=== PATIENT | female | born 1955 | race Caucasian/White ===

== ENCOUNTER → 2020-03-05 10:06 | Outpatient (CLI) | payer BC, SELFPAY ==
--- NOTE | ~2020-03-05 | MM_ITS ---
EXAMINATION: MM screening lamar BI w jael HISTORY: Screening TECHNIQUE: Craniocaudal and mediolateral oblique 3-D tomosynthesis images were obtained and synthetic 2-D images were generated. CAD analysis was submitted and interpreted. COMPARISON: 11/07/2018 BREAST PARENCHYMAL COMPOSITION: There are scattered areas of fibroglandular density. FINDINGS: There is no evidence of suspicious mass, calcification, or architectural distortion to sugg est malignancy in either breast. There has been no suspicious interval change. IMPRESSION: 1. No mammographic evidence of malignancy. 2. Recommend routine screening mammography in one year. BI-RADS Category 1: Negative Reviewed, dictated and finalized at location A. [employer] TRA[employer]
== END ==
PROVIDERS: Visit Provider Nurse Practitioner
DX: Z12.31 Encounter for screening mammogram for malignant neoplasm of breast (principal)
CPT/HCPCS: 77063; 77067

== ENCOUNTER 2021-04-16 10:07 | Outpatient (CLI) | payer MEDICARE, SELFPAY ==
--- NOTE | ~2021-04-16 | MM_ITS ---
EXAMINATION: MM screening lamar BI w jael HISTORY: Screening TECHNIQUE: Craniocaudal and mediolateral oblique 3-D tomosynthesis images were obtained and synthetic 2-D images were generated. CAD analysis was submitted and interpreted. COMPARISON: Comparison to multiple prior studies sequentially, with oldest reviewed study dated 11/07. BREAST PARENCHYMAL COMPOSITION: The breasts are almost entirely fatty. FINDINGS: There is no evidence of suspicious mass, calcification, or architectural distortion to sugg est malignancy in either breast. There has been no suspicious interval change. IMPRESSION: 1. No mammographic evidence of malignancy. 2. Recommend routine screening mammography in one year. BI-RADS Category 1: Negative Reviewed, dictated and finalized at location A. [employer]
== END 2021-04-16 10:08 | disposition home or self-care (01) ==
PROVIDERS: Visit Provider Nurse Practitioner
DX: Z12.31 Encounter for screening mammogram for malignant neoplasm of breast (principal)
CPT/HCPCS: 77063; 77067

== ENCOUNTER → 2021-04-29 12:56 | Outpatient (CLI) | payer MEDICARE, SELFPAY ==
--- NOTE | ~2021-04-29 | DEXA_ITS ---
Bone Density Report Name: CASPER MILLAN Age: 65 Sex: Female Ethnicity: White Date of : 1955 Indication: postmenopausal; screening for osteoporosis; parental hip fracture; prior fracture; asthma or emphysema; end stage renal disease; Referring Provider: COLE, ANN MARIE Study: Bone densitometry was performed. Exam Date: April 29, 2021 Accession number: [id number] Bone Density: Region BMD T-score Z-score Classification AP Spine (L3, L4) 1.163 0.6 2.5 Normal Femoral Neck (Left) 0.979 1.2 2.7 Normal Total Hip (Left) 1.130 1.5 2.8 Normal Femoral Neck (Right) 0.957 1.0 2.5 Normal Total Hip (Right) 1.068 1.0 2.3 Normal Total Hip Mean 1.099 1.3 2.6 Normal World Health Organization criteria for BMD impression classify patients as: Normal (T-score at or above -1.0), Osteopenia (T-score between -1.0 and -2.5), or Osteoporosis (T-score at or below -2.5). 10-year Fracture Risk: FRAX not reported because: All T-scores for Spine Total, Hip Total, Femoral Neck at or above -1.0 Prior hip or vertebral fracture Previous Exams: Region Exam Age BMD T-score BMD Change BMD Change Date g/cm2 vs Baseline vs Previous AP Spine(L3, L4) 04/29/2021 65 1.163 0.6 0.125* 0.125* 11/07/2018 63 1.039 -0.6 Total Hip(Left) 04/29/2021 65 1.130 1.5 -0.053* -0.053* 11/07/2018 63 1.183 2.0 Total Hip(Right) 04/29/2021 65 1.068 1.0 0.006 0.006 11/07/2018 63 1.063 1.0 *Denotes significance at 95% confidence level, LSC for AP Spine = 0.022 g/cm2, LSC for Total Hip = 0.027 g/cm2 Clinical Information Provided by Patient: Have had a previous hip or vertebral fracture Has had a low trauma fracture Parent has had a hip fracture Has used the following medications: Vitamin D, MTV Has the following medical conditions: Asthma or Emphysema, End stage renal disease Patient maximum height was 63.5 Menopause Age: 52 Does not regularly consume dairy products Drinks caffeinated beverages Onset of menses at age 9 Number of children 2 Missed period for more than 6 months in a row Impression: The patient has normal bone mass. The patient has risk factors, including: parental hip fracture, previous fracture. The BMD for the Total Hip(Left) decreased, changing by -0.053 since the last DXA exam. Discussion: INCREASED RISK OF FRACTURE DUE TO HISTORY OF FRACTURE. The patient's previous fracture puts the pa
--- NOTE | ~2021-04-29 | US_ITS ---
EXAMINATION: US transvaginal EXAM DATE: 04/29/2021 13:25 INDICATION: Abnormal findings on diagnostic imaging of other abdominal. TECHNIQUE: Pelvic transvaginal sonogram was performed. There are multiple grayscale and Doppler imag es available for interpretation. Comparison is made to prior examination from 11/07/2018. FINDINGS: Uterus measures 9.7 x 6.0 x 6.4 cm, with multiple fibroids up to about 3.7 cm. This is obs curing the endometrial stripe. Previous measurement of endometrium was about 1 cm and reportedly chele ent had biopsy following that procedure. Technologist reports endometrial measurement of 1.8 cm but i t is obscured by the fibroids and difficult to confidently evaluate. There is no free pelvic fluid. Right adnexa: The ovary is not identified. There is no adnexal mass. Left adnexa: The ovary is not identified. There is no adnexal mass. IMPRESSION: Scattered small thyroid obscuring the endometrium which is not confidently evaluated. If there is clinical concern for endometrial cancer consider MRI. Reviewed, dictated and finalized at location G. IMPRESSION: Scattered small thyroid obscuring the endometrium which is not conf idently evaluated. If there is clinical concern for endometrial cancer consider MRI.
== END ==
PROVIDERS: Visit Provider Nurse Practitioner
DX: Z78.0 Asymptomatic menopausal state (principal); R93.5 Abnormal findings on diagnostic imaging of other abdominal regions, including retroperitoneum
CPT/HCPCS: 76830; 77080

== ENCOUNTER 2021-06-09 09:14 | Outpatient (CLI) | payer MEDICARE, SELFPAY ==
[2021-06-09 10:02] LABS: Anion Gap 3 mmol/L (8-16); Blood Urea Nitrogen 19 mg/dL (7-17); Calcium 9.8 mg/dL (8.4-10.2); Carbon Dioxide 32 mmol/L (22-30); Chloride 100 mmol/L (98-107); Estimated Glomerular Filt Rate > 60; Glucose 308 mg/dL (65-110); Potassium 4.3 mmol/L (3.4-5.0); Sodium 135 mmol/L (137-145)
== END 2021-06-09 09:15 | disposition home or self-care (01) ==
LOC: ANHSURGERY 09:20
PROVIDERS: Anesthesiology; PCP Family Medicine; Visit Provider Obstetrics & Gynecology Gynecology
DX: Z79.899 Other long term (current) drug therapy (principal); Z01.818 Encounter for other preprocedural examination
CPT/HCPCS: 36415; 80048

== ENCOUNTER 2021-06-13 01:44 | Day surgery (SDC) | payer MEDICARE, SELFPAY ==
[2021-06-04 10:31] VITALS: BMI 42.5
--- NOTE | 2021-06-04 10:39 | PC.NURSE ---
Report to the Outpatient Waiting Room, entrance under the green pavilion located off [facility], at time _1000_ on date _06/04/21_. OR Time: _1200_. - You and your visitor will be asked a series of questions to screen for COVID 19 for your protection. - A mask is required within the hospital. One visitor will be allowed to accompany the patient into the hospital. Patients visitor will be instructed to remain with patient at all times or leave the Preoperative COVID Testing Requirements: NONE Patients may have clear liquids (water, carbonated beverages, clear teas, apple juice) until 3 hours prior to surgery with a maximum of 20 ounces. - No food from midnight until time of surgery - Infants may have breast milk until 4 hours before surgery, formula 6 hours prior to surgery. - Children will be allowed to drink immediately following surgery. If applicable, please bring a bottle or sippy cup to assist with drinking. Juice, water, soda, and popsicles are readily available. For infants on formula, please bring formula the day of surgery. Pacifiers are allowed. Take the following medications with a SIP of water the morning of surgery: __METOPROLOL, INHALER__ Medications to discontinue _MELOXICAM PER DR. OCHOA'S INSTRUCTIONS, ALL VITAMINS/SUPPLEMENTS 3 DAYS PRIOR TO SURGERY PER ANESTHESIA, Date to take last dose 06/09/21_ Please no make-up, nail colombian, hairspray, perfume, deodorant, or body powder the day of surgery. No jewelry (including any body piercings) or valuables the day of surgery, leave them at home. Please take a shower or bath the night before, or the morning of, surgery with an antibacterial soap. Wear comfortable, loose fitting clothing. Children are encouraged to wear pajamas. - Jewelry must be removed prior to entering the operating room. Rings and piercings that are not removed may be cut off. - The hospital will not accept responsibility for valuables. - Please leave all valuables, including medications, at home the day of surgery. If you are going home after surgery, a licensed commercial front load driver must drive you home. - NO public transportation without another adult. - We recommend that an adult stay with you for 24 hours following discharge. - We also recommend that you do not drive, make important decision, drink alcoholic beverages, or take any drugs that were not prescribed by your health care provider for at least 24 hours after your discharge time. Follow any additional instructions given to you from your surgeon. Telephone instructions given to PT and asked if any additional questions and then verbalized understanding. Patient advised to call surgeon office or pre surgery nurse liaison [phone] if any additional questions.
--- NOTE | 2021-06-12 16:50 | P.PNAN_ITS ---
Anes - Initial Pre Proc Eval Procedure: Operation Date: 06/13/21 12:00 Proposed Procedures p Hysteroscopy Dilation and Curettage - Rosy Del Rosario MD Date/Time: 06/12/21 16:50 Surgeon: Rosy Del Rosario MD Pre Op Diagnosis: thickened endometrium Patient Data Age: 66 Gender: F Height: 1.6 m Weight: 109.09 kg Allergies Allergy/AdvReac Type Severity Reaction Status Date / Time lisinopril Allergy Cough Verified 06/13/21 10:37 naproxen [From Aleve] AdvReac Gastrointestinal Verified 06/13/21 10:37 Upset thimerosal AdvReac Itching Verified 06/13/21 10:37 Home Medications Medication Instructions Recorded Confirmed Type Fish Oil 1 tab-cap QA 06/04/21 06/13/21 History bimatoprost [Lumigan] 1 drp EACH EYE QPM 06/04/21 06/13/21 History cholecalciferol (vitamin D3) 125 mcg PO QAM 06/04/21 06/13/21 History fenofibrate nanocrystallized 145 mg PO HS 06/04/21 06/13/21 History mzlhhwdidte-soivqjiwr-smpequon 1 inh INHALATION QA 06/04/21 06/13/21 History [Trelegy Ellipta] losartan-hydrochlorothiazide 1 tablet QAM 06/04/21 06/13/21 History lovastatin 20 mg HS 06/04/21 06/13/21 History magnesium 250 mg PO QAM 06/04/21 06/13/21 History melatonin 10 mg PO HS PRN 06/04/21 06/13/21 History meloxicam 15 mg QAM 06/04/21 06/13/21 History metformin 500 mg BID 06/04/21 06/13/21 History metoprolol tartrate 50 mg BID 06/04/21 06/13/21 History ok-nm-GW-[place] 3,6,9 #3 [Women's 1 cap PO HS 06/04/21 06/13/21 History 50+ Advanced] Patient hx anesthesia problems: none Family hx anesthesia problems: none Results Review: All pre-operative results and documents have been reviewed as part of the pre-operative evaluation. [facility] Past Medical History Medical History (Updated 06/12/21 @ 16:52 by Gumaro Santiago MD) COPD (chronic obstructive pulmonary disease) Diabetes Glaucoma HTN (hypertension) Hyperlipidemia Morbid obesity with BMI of 40.0-44.9, adult ROSA (obstructive sleep apnea) Social History Social History Smoking packs per day: 1 Smoking cigarettes per day: 20.0 Years smoked: 22 Smoking pack-years: 22.00 Smoking status: Former smoker Tobacco type: cigarettes Second hand tobacco smoke exposure: No Additional smoking assessment comments: QUIT 1993 Alcohol intake: never Substance use: never Substance use type: does not use Living arrangements: alone Spiritual care concerns: No Anes - Eval Final PreProcedure Day of Procedure 06/12/21 16:50 Patient weight: morbidly obese Heart: regular rate and rhythm Lungs: clear to auscultation and normal air movement Airway: Mallampati scale class II Neurological: alert and oriented Last oral intake: >/= 8 hours ASA classification: III Emergent: no Anesthetic plan: proceed Anesthesia type and monitoring: general GIVS and LMA Results Review: All pre-operative results and documents have been reviewed as part of the pre-operative evaluation. Informed Consent: The patient's anesthetic plan and its attendant risks and benefits were discussed with the patient/family/POA. Questions were solicited and answers provided to the satisfaction of the patient/family/POA.
[2021-06-13 10:39] VITALS: BP 126/51; PULSE 66; RESP 18; TEMP 36.5; O2SAT 98
[2021-06-13] MEDS: ACETAMINOPHEN 500 MG TABLET 1000 MG PO (10:48)
[2021-06-13] MEDS: LACTATED RINGERS 1,000 ML 30 ML IV CONT (10:56)
[2021-06-13 11:02] LABS: Glucose Point of Care 185 mg/dl (65-105)
--- NOTE | 2021-06-13 12:20 | WPDHPUPDATE1 ---
History and Physical Update Update Date/Time: 06/13/21 12:20 History and Physical has been reviewed, including an updated exam of the patient. There are NO changes in the patient's condition. Risks, benefits, and alternatives have been discussed and questions answered. Patient agrees to proceed with procedure.
--- NOTE | 2021-06-13 12:20 | PM.HPGS ---
History of Present Illness History of Present Illness Consent: Risks, benefits, and alternatives have been discussed and questions answered. Patient agrees to proceed with procedure. Chief complaint: thickened endometrium Narrative: Meliza Madsen is a 66 year old female with incidental finding of thickened endometrium up to 1.8 cm but obscurred by fibroids. Denies bleeding. Possilbe pathology reviewed. Rec. to proceed with D&C hysteroscopy. Risks of infection, bleeding, and perforation reviewed. Agrees to proceed. Review of Systems Review of Systems: not repeated day of surgery; patient states no changes in status [facility] Past Medical History Medical History (Updated 06/13/21 @ 12:23 by Rosy Del Rosario MD) COPD (chronic obstructive pulmonary disease) Diabetes Glaucoma HTN (hypertension) Hyperlipidemia Morbid obesity with BMI of 40.0-44.9, adult (normal spontaneous vaginal delivery) x2 ROSA (obstructive sleep apnea) Surgical History Surgical History (Updated 06/13/21 @ 12:23 by Rosy Del Rosario MD) History of hysteroscopy History of tonsillectomy Social History Social History Smoking packs per day: 1 Smoking cigarettes per day: 20.0 Years smoked: 22 Smoking pack-years: 22.00 Smoking status: Former smoker Tobacco type: cigarettes Second hand tobacco smoke exposure: No Additional smoking assessment comments: QUIT 1993 Alcohol intake: never Substance use: never Substance use type: does not use Living arrangements: alone Spiritual care concerns: No Meds Home Medications and Allergies Home Medications Medication Instructions Recorded Confirmed Type Fish Oil 1 tab-cap QAM 06/04/21 06/13/21 History bimatoprost [Lumigan] 1 drp EACH EYE QPM 06/04/21 06/13/21 History cholecalciferol (vitamin D3) 125 mcg PO QAM 06/04/21 06/13/21 History fenofibrate nanocrystallized 145 mg PO HS 06/04/21 06/13/21 History omgjifjlhsb-vzrlxaaua-pbtvwhrp 1 inh INHALATION QAM 06/04/21 06/13/21 History [Trelegy Ellipta] losartan-hydrochlorothiazide 1 tablet QAM 06/04/21 06/13/21 History lovastatin 20 mg HS 06/04/21 06/13/21 History magnesium 250 mg PO QAM 06/04/21 06/13/21 History melatonin 10 mg PO HS PRN 06/04/21 06/13/21 History meloxicam 15 mg QAM 06/04/21 06/13/21 History metformin 500 mg BID 06/04/21 06/13/21 History metoprolol tartrate 50 mg BID 06/04/21 06/13/21 History kw-hu-QK-[place] 3,6,9 #3 [Women's 1 cap PO HS 06/04/21 06/13/21 History 50+ Advanced] Allergies Allergy/AdvReac Type Severity Reaction Status Date / Time lisinopril Allergy Cough Verified 06/13/21 10:37 naproxen [From Aleve] AdvReac Gastrointestinal Verified 06/13/21 10:37 Upset thimerosal AdvReac Itching Verified 06/13/21 10:37 Vital Signs Vital Signs - 24 hr 06/13/21 10:39 Temperature 97.7 F Pulse Rate 66 Respiratory Rate 18 Blood Pressure 126/51 L Pulse Oximetry 98 Exam Const: General: alert Orientation/consciousness: patient oriented x3 Resp: Effort & Inspection: normal respiratory effort Auscultation: clear to auscultation bilaterally Cardio: Rate: regular rate Rhythm: regular rhythm GI: GI Palp: Yes Soft to palpation, No Tenderness to palpation present (GI) and No Palpable mass present : External Female Exam: normal external appearance Speculum Exam - Vagina: normal appearance of the vagina and normal vaginal discharge Speculum Exam - Cervix: normal appearance of the cervix Bimanual exam- vagina & uterus: uterine size normal and consistency normal Bimanual Exam- Adnexa, other: normal adnexae and No adnexal tenderness Neuro: General: patient oriented x3 Assessment and Plan Assessment and plan (1) Thickened endometrium: Code(s): R93.89 - Abnormal findings on diagnostic imaging of other specified body structures Status: Acute Assessment and Plan: plan to proceed with D&C hysteroscopy
--- NOTE | 2021-06-13 12:50 | P.OP_ITS ---
Procedure Note - Detailed Date of Procedure 06/13/21 Pre-op Diagnosis thickened endometrium Post-op Diagnosis Same Procedure Performed D&C hysteroscopy Surgeon Rosy Del Rosario MD Anesthesia MAC and Local Findings Uterus 8 cm; grossly atrophic with anterior fibroid Description of Procedure The patient was taken to the operating room and placed under anesthesia in the dorsal lithotomy position. She was prepped and draped in the usual sterile fashion. [place] speculum was placed in the vagina and the cervix was grasped on the anterior lip with a tenaculum. The cervix is injected in each quadrant with 1% lidocaine. The uterus is sounded to 8cm. The cervix is serially dilated with [place]gar to an 8. The diagnostic hysteroscope was placed with no abnormalities noted. The hysteroscope was then removed. The medium sharp curette is used to curette the endometrium until a good uterine cry was noted in areas. Minimal material was obtained consistent with the visual appearance. All instruments are removed. Sponge, needle, and instrument counts are correct per the OR staff. Estimated Blood Loss 5 Drains No Packing No Pathology Yes ( Endometrial curettings) Complications No immediate complications Condition Stable Disposition PACU
[2021-06-13 12:55] VITALS: BP 149/61; PULSE 80; RESP 14; O2SAT 97
[2021-06-13 13:25] VITALS: BP 132/64; PULSE 77; RESP 14
[2021-06-13] MEDS: oxyCODONE HCL (*CRX) 5 MG TAB IR PO (13:43)
[2021-06-13 13:45] VITALS: BP 138/67; PULSE 77; RESP 14
== END 2021-06-13 13:55 | disposition home or self-care (01) ==
PROVIDERS: PCP Family Medicine; Visit Provider Obstetrics & Gynecology Gynecology
PROC: 0U5B8ZZ Destruction of Endometrium, Via Natural or Artificial Opening Endoscopic (ICD-10-PCS; CPT 58563; principal; 2021-06-13 12:00)
DX: D25.9 Leiomyoma of uterus, unspecified (principal); N85.8 Other specified noninflammatory disorders of uterus; J44.9 Chronic obstructive pulmonary disease, unspecified; E11.9 Type 2 diabetes mellitus without complications; I10 Essential (primary) hypertension; G47.33 Obstructive sleep apnea (adult) (pediatric); E78.5 Hyperlipidemia, unspecified; Z87.891 Personal history of nicotine dependence; E66.01 Morbid (severe) obesity due to excess calories; Z68.41 Body mass index [BMI] 40.0-44.9, adult
CPT/HCPCS: 58558; 36415; 80048; 82948; 88305; A9270; J2704; J3010; J7030; J7120

== ENCOUNTER 2021-08-24 18:29 | Emergency (ER) | payer MEDICARE, SELFPAY ==
[2021-08-24 18:36] VITALS: BP 180/70; PULSE 72; RESP 20; TEMP 36.4; O2SAT 100
--- NOTE | 2021-08-24 18:36 | ED.FEMALEGU ---
HPI - Female Genitourinary General Chief complaint: Urogenital-Female Stated complaint: Urinary Problem Time Seen by Provider: 08/24/21 18:36 Source: patient and RN notes reviewed History of Present Illness HPI Narrative: Patient is a 66-year-old female who presents the urgent care with complaints of a possible UTI. Patient does have a history of a ovarian cyst and is also had some left lower suprapubic pressure. Patient states that the pain started yesterday and was more persistent today. Patient has taken Tylenol. Also reports of some chills which is normal when she has UTIs . Patient denies any urinary frequency, urgency, hematuria. Denies a fever, nausea, vomiting. No other acute complaints. No acute distress noted. Patient aware of the plan of care. Some parts of this dictation were generated by voice recognition software and may contain typographical and/or grammatical inaccuracies. Related Data Home Medications Medication Instructions Recorded Confirmed Fish Oil 1 tab-cap QAM 06/04/21 08/24/21 bimatoprost 0.01 % eye drops 1 drp EACH EYE QPM 06/04/21 08/24/21 (Bita) cholecalciferol (vitamin D3) 125 125 mcg PO QAM 06/04/21 08/24/21 mcg (5,000 unit) tablet fenofibrate nanocrystallized 145 145 mg PO HS 06/04/21 08/24/21 mg tablet losartan 100 1 tablet QAM 06/04/21 08/24/21 mg-hydrochlorothiazide 12.5 mg tablet lovastatin 20 mg tablet 20 mg HS 06/04/21 08/24/21 magnesium 250 mg tablet 250 mg PO QAM 06/04/21 08/24/21 melatonin 10 mg tablet 10 mg PO HS PRN Sleep 06/04/21 08/24/21 meloxicam 15 mg tablet 15 mg QAM 06/04/21 08/24/21 metformin 500 mg tablet 1,000 mg BID 06/04/21 08/24/21 metoprolol tartrate 50 mg tablet 50 mg BID 06/04/21 08/24/21 [id number]-kyapqmxk-OD-omega 1 cap PO HS 06/04/21 08/24/21 3,6,9 #3 400 mcg capsule Allergies Allergy/AdvReac Type Severity Reaction Status Date / Time lisinopril Allergy Cough Verified 08/24/21 18:43 naproxen [From Aleve] AdvReac Gastrointestinal Verified 08/24/21 18:43 Upset thimerosal AdvReac Itching Verified 08/24/21 18:43 Review of Systems Review of Systems: CONSTITUTIONAL: Denies fever, chills, or sweats. EYES: Denies visual changes, redness, or discharge. ENT: Denies rhinorrhea, congestion, sore throat, or otalgia. CARDIOVASCULAR: Denies chest pain, palpitations, or edema. RESPIRATORY: Denies cough or dyspnea. GASTROINTESTINAL: Denies abdominal pain, nausea, vomiting, or diarrhea. GENITOURINARY: Reports of left-sided suprapubic pressure SKIN: Denies rash or itching. MUSCULOSKELETAL: Denies back pain, joint pain, or myalgia. NEUROLOGIC: Denies headache, numbness, or weakness. All other systems reviewed are negative, except as documented in HPI. [facility] Past Medical History Medical History (Updated 08/24/21 @ 18:55 by AGUSTÍN Siu) COPD (chronic obstructive pulmonary disease) Diabetes Glaucoma HTN (hypertension) Hyperlipidemia Morbid obesity with BMI of 40.0-44.9, adult (normal spontaneous vaginal delivery) x2 ROSA (obstructive sleep apnea) Surgical History Surgical History (Updated 06/13/21 @ 12:23 by Rosy Del Rosario MD) History of hysteroscopy History of tonsillectomy Social History Social History Smoking packs per day: 1 Smoking cigarettes per day: 20.0 Years smoked: 22 Smoking pack-years: 22.00 Smoking status: Former smoker Tobacco type: cigarettes Second hand tobacco smoke exposure: No Additional smoking assessment comments: QUIT 1993 Alcohol intake: never Substance use: never Substance use type: does not use Spiritual care concerns: No Comments At the time of my signature, I reviewed and agree with the nursing past medical, surgical, social, and family history. There is no relevant family history pertinent to the patient complaint. Exam Narrative: GENERAL: This is a well-nourished, well-developed patient, in no apparent distress. HEAD: normocephalic, atraumat
== END 2021-08-24 18:58 | disposition home or self-care (01) ==
PROVIDERS: Emergency Provider Nurse Practitioner Family; PCP Family Medicine
DX: N39.0 Urinary tract infection, site not specified (principal); Z87.891 Personal history of nicotine dependence; J44.9 Chronic obstructive pulmonary disease, unspecified; E11.9 Type 2 diabetes mellitus without complications; H40.9 Unspecified glaucoma; I10 Essential (primary) hypertension; E78.5 Hyperlipidemia, unspecified; G47.33 Obstructive sleep apnea (adult) (pediatric); E66.01 Morbid (severe) obesity due to excess calories; Z68.41 Body mass index [BMI] 40.0-44.9, adult
CPT/HCPCS: 81003; 87077; 87086; 87186; 99213; G0463

== ENCOUNTER 2022-06-04 09:41 | Outpatient (CLI) | payer MEDICARE, SELFPAY ==
--- NOTE | ~2022-06-04 | MM_ITS ---
EXAMINATION: MM screening lamar BI w jael HISTORY: Screening mammogram TECHNIQUE: Craniocaudal and mediolateral oblique 3-D tomosynthesis images were obtained and synthetic 2-D images were generated. Bilateral rotated lateral CC views. CAD analysis was submitted and interp reted. COMPARISON: 04/16/2021, 03/05/2020 bilateral screening mammogram examinations BREAST PARENCHYMAL COMPOSITION: The breasts are almost entirely fatty. FINDINGS: There is no evidence of suspicious mass, calcification, or architectural distortion to sugg est malignancy in either breast. There has been no suspicious interval change. IMPRESSION: 1. No mammographic evidence of malignancy. 2. Recommend routine screening mammography in one year. BI-RADS Category 1: Negative Reviewed, dictated and finalized at location A.
== END 2022-06-04 09:42 | disposition home or self-care (01) ==
LOC: ANHIMG 09:46
PROVIDERS: PCP Family Medicine; Visit Provider Nurse Practitioner
DX: Z12.31 Encounter for screening mammogram for malignant neoplasm of breast (principal)
CPT/HCPCS: 77063; 77067

== ENCOUNTER 2023-05-28 08:33 | Outpatient (CLI) | payer MEDICARE, SELFPAY ==
--- NOTE | ~2023-05-28 | MM_ITS ---
EXAMINATION: MM screening lamar BI w jael HISTORY: Screening TECHNIQUE: Craniocaudal and mediolateral oblique 3-D tomosynthesis images were obtained and synthetic 2-D images were generated. CAD analysis was submitted and interpreted. COMPARISON: No prior mammogram is available for comparison at this institution. Comparison to multipl e prior studies sequentially, with oldest reviewed study dated 03/05/2020. BREAST PARENCHYMAL COMPOSITION: There are scattered areas of fibroglandular density. FINDINGS: There is no evidence of suspicious mass, calcification, or architectural distortion to sugg est malignancy in either breast. There has been no suspicious interval change. IMPRESSION: 1. No mammographic evidence of malignancy. 2. Recommend routine screening mammography in one year. BI-RADS Category 1: Negative Reviewed, dictated and finalized at location B.
== END 2023-05-28 08:34 | disposition home or self-care (01) ==
LOC: ANHIMG 08:36
PROVIDERS: PCP Family Medicine; Visit Provider Obstetrics & Gynecology Gynecology
DX: Z12.31 Encounter for screening mammogram for malignant neoplasm of breast (principal)
CPT/HCPCS: 77063; 77067

== ENCOUNTER 2024-06-19 07:11 | Outpatient (CLI) | payer MEDICARE, SELFPAY ==
--- NOTE | ~2024-06-19 | MM_ITS ---
EXAMINATION: MM screening lamar BI w jael HISTORY: Screening mammogram TECHNIQUE: Craniocaudal and mediolateral oblique 3-D tomosynthesis images were obtained and synthetic 2-D images were generated. CAD analysis was submitted and interpreted. COMPARISON: 05/28/2023, 06/04/2022, 04/16/2021, 03/05/2020 BREAST PARENCHYMAL COMPOSITION:Not Dense. The breasts are almost entirely fatty FINDINGS: No suspicious mass, calcification, or architectural distortion are identified in either analisa ast to suggest malignancy. There has been no suspicious interval change. IMPRESSION: No mammographic evidence of malignancy. Recommend routine screening mammography in one year. BI-RADS Category 1: Negative Reviewed, dictated and finalized at location .
--- OUTSIDE RECORDS SUMMARY | 2024-06-19 07:19 | XMS_ITS | CONTINUITY OF CARE DOCUMENT ---
Author Name sahra denisefelice Address Unknown Organization [facility] Address [id number] [place] [address] [address] [place] [address] Phone [phone] Care Team Providers Care Logistician Name Role Phone Yogi Alcantar MD Unavailable [phone] MILO DILLON, SUSAN Unavailable [phone] DERICHIE PATenC, SUSAN Unavailable [phone] PROBLEMS Condition Status Date Provider Notes Family History of CVA active Yogi Alcantar MD CHEST PAIN active Yogi Alcantar MD Obesity active Yogi Alcantar MD Degenerative joint disease of right knee active 02/21 Yogi Alcantar MD Diabetes mellitus active Yogi Alcantar MD Hypertension active Yogi Alcantar MD ENCOUNTERS Date Type Provider Location Encounter Diag nosis - In-person encounter Office Visit Yogi Alcantar MD [facility] Family History of CVACHEST PAINObesityDegenerative joint disease of right kneeDiabetes mellitusHypertension VITAL SIGNS Date Observation Value Provider Body Mass Index (Ratio) 45.72 kg/m2 Alejandro Hughes blood pressure, resting Yes Yogi Alcantar MD blood pressure, diastolic 86 mm[Hg] Da cris Graciela blood pressure, systolic 142 mm[Hg] Dac ia Graciela oxygen saturation, oximetry 95 % Cheri Graciela respiratory rate E&M 18 /min Cheri V oss pulse rate 69 /min Cheri Graciela weight E&M 250 [lb_av] Cheri Fremont height E&M 62 [in_i] Cheri Fremont ALLERGIES Allergy Name Onset Date Reaction Criticality Status DARVOCET High Criticality active THIMPROSAL High Criticality active HISTORY OF MEDICATION USE Medication Status Instructions Dates Provider Indications Com ments MULTIPLE VITAMIN ORAL TABLET active take one daily [facility] VITAMIN D3 5000 UNIT ORAL TABLET active take one daily [facility] VITAMIN B-12 5000 MCG ORAL TABLET DISINTEGRATING active take one half tablet daily Cheri Fremont ALLERGY RELIEF TABLET active take one daily [facility] CO-Q 10 OMEGA-3 FISH OIL ORAL CAPSULE active take one daily [facility] ASPIR-81 81 MG ORAL TABLET DELAYED RELEASE active take one daily [facility] METOPROLOL TARTRATE 50 MG ORAL TABLET active take one twice daily [facility] LOSARTAN POTASSIUM-HCTZ 100-12.5 MG ORAL TABLET active take one daily [facility] METFORMIN HCL 500 MG ORAL TABLET active take once daily [facility] SOCIAL HISTORY Date Observation Value Provider social history E&M Smoking Histo ry: Uvaldo whitaker is a former smoker. Yogi Alcantar MD social history reviewed E&M revi ewed - no changes required Yogi Alcantar MD alcohol use no [facility] number of years as a smoker 8 a Cheri Fremont smoking history, total pack/day 2 Cheri Fremont smoking, year quit 1994 Cheri [facility] s cigarette use yes Cheri Fremont smoking status Former smoker Cheri Fremont FAMILY HISTORY Family Member Condition Father Family History of Hy pertension: Mother Family History of Hy pertension: Mother Family History of CV A or Stroke: Mother Family History of Ar thritis: INSURANCE PROVIDERS Payer name Policy type / Coverage type [place] red republic[employer] ID [id number] MEDICAID Medicaid [id number] ADVANCE DIRECTIVES Name Date DISCUSSED - NO DECISION MADE TREATMENT PLAN Date Name Performer Cardiology New Patie nt:Her updated medication list for this problem includes: Aspir-81 81 Mg Oral Tablet Delayed Release (Aspirin) ..... Take one daily Losartan Potassium-hctz 100-12.5 Mg Oral Tablet (Losartan potassium-hctz) ..... Take one daily Metformin Hcl 500 Mg Oral Tablet (Metformin hcl) ..... Take once daily [facility] New Patie nt:BP today: 142/86 Her updated medication list for this problem includes: Metoprolol Tartrate 50 Mg Oral Tablet (Metoprolol tartrate) ..... Take one twice daily Losartan Potassium-hctz 100-12.5 Mg Oral Tablet (Losartan potassium-hctz) ..... Take one daily [facility] New Ar nt:Orders: E KG (CPT-37615) C omplete Echo (CPT-28554) S TR - Adenosine (CPT-61958) C T, Coronary Calcium Score (CPT-90839) Jones [place]berg Date Name CT, Coronary Calcium Score STR - Adenosine Complete Echo HISTORY OF PROCEDURES Procedure Date Procedure Name Provider Procedure Notes S tatus Regadenoson, 4 units Yogi Alcantar MD completed Cardiolite, 2 units Yogi Alcantar MD c ompleted SPECT Images Taye Bhandari MD compl eted Stress EKG Jabier Heredia MD complete d EKG Yogi Alcantar MD completed
--- OUTSIDE RECORDS SUMMARY | 2024-06-19 07:19 | XMS_ITS | Clinical Summary ---
Author Organization [facility] Building [address] Address [address] [place] [address] Care Team Providers Care Plating Foreman Name Role Phone Morro Piedra MD Primary Care Provider [phone] Rosy Del Rosario MD Unavailable [phone] Allergies Active Allergy Reactions Criticality Noted Date Comments Amlodipine Edema,Swelling High 05/09/2015 Ibuprofen Angioedema,Unknown High 01/20/2016 Reaction: facial swelling, Reaction: facial swelling, Lisinopril Cough,Other (See comments) High 11/15/2018 cough Naproxen Other (See comments),Nausea only,Nausea & Vomiting,Vomiting High 11/15/2018 Reaction: Gastrointestinal Intolerance, Reaction: Gastrointestinal Intolerance, Reaction: Gastrointestinal Intolerance, Reaction: Gastrointestinal Intolerance, Nsaids (Non-Steroidal Anti-Inflammatory Drug) Nausea only,Nausea & Vomiting,Hives High 01/20/2016 Other Unknown High 12/22/2017 Propoxyphene-Acetam inophen Unknown High 12/22/2017 Thimerosal Unknown,Hives,Swel ling,Urticaria High 01/20/2016 Facial swelling Tolmetin Nausea Only,Nausea only,Nausea & Vomiting High 01/20/2016 Medications blood-glucose meter (True Metrix Air Glucose Meter) misc True Metrix Air Glucose Meter Active multivitamin with iron tablet Take by mouth Acti ve blood glucose diagnostic strip True Metrix Glucose Test Strip Active lancets 33 gauge misc TRUEplus Lancets 33 gauge Active omega-3 fatty acids-fish oil 360-1,200 mg capsule Take 1,200 mg by mouth 02/11/19 17 Active traZODone (DESYREL) 50 mg tablet trazodone 50 mg tablet 12/03/19 19 Active triamcinolone (KENALOG) 0.025 % cream Apply topically 2 times daily 12/03/19 19 Active albuterol HFA (PROVENTIL HFA,VENTOLIN HFA,PROAIR HFA) 90 mcg/actuation inhaler Ventolin HFA 90 mcg/actuation aerosol inhaler 10/17/19 16 Active cholecalciferol (VITAMIN D-3) 5,000 unit capsule Take 1 capsule (5,000 Units total) by mouth daily 02/11/19 17 Active fenofibrate nanocrystallized (TRICOR) 145 mg tablet Take 1 tablet (145 mg total) by mouth daily 12/16/19 19 Active losartan-hydroCHLORO thiazide (HYZAAR) 100-12.5 mg per tablet losartan 100 mg-hydrochloro thiazide 12.5 mg tablet 01/03/20 16 Active metoprolol (LOPRESSOR) 50 mg tablet metoprolol tartrate 50 mg tablet 10/17/19 16 Active loratadine (CLARITIN) 10 mg tablet ALLERGY RELIEF TABLET 12/23/19 18 Active cyanocobalamin (Vitamin B-12) 1,000 mcg/mL injection Inject under the skin Active FeroSuL 325 mg (65 mg iron) tablet Take 1 tablet (325 mg total) by mouth Takes 3 x wk Active meloxicam (MOBIC) 15 mg tablet Take 1 tablet (15 mg total) by mouth daily 30 tablet 12/30/19 23 Active fluticasone furoate-vilanteroL (Breo Ellipta) 200-25 mcg/dose diskus inhalerIndications:M oderate persistent asthma without complication Inhale 1 puff daily Rinse mouth with water after use. Do not swallow. 60 each 11 06/01/19 24 Active Ozempic 1 mg/dose (4 mg/3 mL) pen injector injection 08/07/19 24 Active latanoprost (XALATAN) 0.005 % ophthalmic solution 1 drop nightly 24 Active lancets (TRUEplus Lancets) 33 gauge misc use to check blood sugar 1-2 times daily Active blood glucose diagnostic (True Metrix Glucose Test Strip) strip USE TO TEST BLOOD SUGAR ONE TO TWO TIMES DAILY DIRECTED Active sertraline (ZOLOFT) 50 mg tablet Take 1 tablet (50 mg total) by mouth daily 11/01/19 24 Active pioglitazone (ACTOS) 15 mg tablet Take 1 tablet (15 mg total) by mouth daily 11/16/19 24 Active atorvastatin (LIPITOR) 40 mg tablet Take 1 tablet (40 mg total) by mouth daily 11/01/19 24 Active metFORMIN XR (GLUCOPHAGE XR) 750 mg 24 hr tablet Take 1 tablet (750 mg total) by mouth daily with breakfast 04/25/19 25 Active fluticasone furoate-vilanteroL (Breo Ellipta) 200-25 mcg/dose diskus inhalerIndications:M oderate persistent asthma without complication Inhale 1 puff daily Rinse mouth with water after use. Do not swallow. 60 each 11 06/01/19 026 Active Hospital, Clinic, or Other Facility Administered Medication Ordered Dose Route Frequency Start Date End Date Status lidocaine (XYLOCAINE) 20 mg/mL (2 %) injection 3 mLIndications:Admini stration of Local Anesthesia 3 mL One-Time Injection 05/30/2024 5 Ended methylPREDNISolone acetate (DEPO-medrol) injection 80 mgIndications:Primar y osteoarthritis of right knee 80 mg intra-artic One-Time Injection 05/30/2024 5 Ended Active Problems Problem Noted Date Diagnosed Date Trigger middle finger of left hand 08/04/2023 Trigger middle finger of right hand 08/04/2023 Moderate persistent asthma without complication 06/01/2023 Assessment & Plan (06/01/2024 11:03 AM CDT): Continue Breo Ellipta 200 daily at the same time She is aware to rinse and spit after use Continue albuterol 2 puffs every 4-6 hours as needed only, she is aware of indications for use 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 however she is well-controlled on ICS/LABA therapy at this time Her absolute eosinophils on 04/24/2024 were 398 We have discussed signs and symptoms that would require earlier evaluation or change to plan of care Assessment & Plan (12/01/2023 10:39 AM CDT): Continue Breo Ellipta 200 daily at the same time She was aware to rinse and spit after use Continue albuterol as needed only, she is aware of indications for use Previous peripheral eosinophilia however she is well-controlled on ICS/LABA therapy at this time We have discussed signs and symptoms that would require earlier evaluation or change to plan of care Discussed vaccinations Assessment & Plan (06/01/2023 9:48 AM CDT): Symbicort is not covered by her insurance, start Breo Ellipta 200 1 puff daily She is aware to discontinue Trelegy and rinse and spit after use Continue albuterol as needed only, discussed indications for use Cigarette nicotine dependence in remission 05/31 Assessment & Plan (06/01/2024 11:01 AM CDT): She quit in 1993 She is not a candidate for annual low-dose cancer screening Assessment & Plan (12/01/2023 10:40 AM CDT): She quit in 1993 She is not a candidate for low-dose cancer screening Assessment & Plan (06/01/2023 9:47 AM CDT): She is not a candidate for low-dose cancer screening Obstructive sleep apnea 06/01/2023 Assessment & Plan (06/01/2024 11:05 AM CDT): Continue PAP use with all sleep She is aware of the risks of uncorrected sleep apnea The last download I see was from 2022: Report date: 06/09/22 to 09/06/22 % total days used 100% % days used > 4 hours 100% Average hours/day 8:31 AHI: 1.2 90/95% pressure 12.3 Continue to follow with sleep medicine Assessment & Plan (12/01/2023 10:39 AM CDT): Continue PAP use with all sleep She is aware of the risks of uncorrected sleep apnea Continue to follow with sleep medicine Assessment & Plan (06/01/2023 9:48 AM CDT): Continue PAP use with all sleep We have discussed the risks of uncorrected sleep apnea Continue to follow with sleep medicine Morbid (severe) obesity due to excess calories 1 Body mass index 40.0-44.9, adult (CMS/HCC) 12/03 COVID 12/24/2020 Primary osteoarthritis of right knee 03/22/2019 Abnormal glucose 12/24/2016 Benign paroxysmal positional vertigo of right ea r 12/24/2016 Right wrist tendinitis 10/26/2016 Vitamin D deficiency 12/13/2012 Overview (05/13/2016): Hypovitaminosis D Benign hypertension 10/30/2010 Overview (05/15/2016): Benign Hypertension Adiposity 10/30/2010 Overview (05/15/2016): Obesity High cholesterol Encounters Date Type Department Care Team Description 05/31/2024 9:00 AM CDT Office Visit [facility] Pulmonary at [address] [place] [id number] Chelo Gomez NP Moderate persistent asthma without complication (Primary Dx); Obstructive sleep apnea; Cigarette nicotine dependence in remission 05/30/2024 9:00 AM CDT Office Visit [facility] Orthopedics and Sports Medicine [address] [place] [address] [address] [place] [phone] Mandie Dumont PA Primary osteoarthritis of right knee (Primary Dx) from Last 3 Months Immunizations Immunization Administration Dates Next Due Tdap 11/06/2011 Surgical History Surgery Date Site/Laterality Comments OTHER SURGICAL HISTORY tonselectomy OTHER SURGICAL HISTORY miscarrage/ DNC OTHER SURGICAL HISTORY 1995 ovarian cyst ruptured ORAL SURGERY Medical History Medical History Date Comments Hx Other Medical panic attacks Arthritis Arthritis Asthma Asthma Obstructive sleep apnea 06/01/2023 Diabetes mellitus (HCC) Kidney stone High cholesterol Family History Medical History Relation Name Comments Heart disease Brother 3 Heart disease; Cause of : Heart disease COPD Brother 4 COPD; Alzheimer's disease Father Alzheime r's Disease; Cause of : Alzheimer's Disease Colon cancer Mother Cancer, colon; Arthritis Other 1 Hypertension Other 1 Stroke Other 1 Other Other 2 Sepsis; Cause o f : Sepsis Relation Name Status Comments Brother 1 (Age 55) Brother 2 Alive Brother 3 Brother 4 Father (Age 64) Mother Alive Other 1 Other 2 Social History Tobacco Use Types Packs/Day Years Used Date Smoking Tobacco: Former Smokeless Tobacco: Never Tobacco Cessation:Counseling Given: Not Answered Alcohol Use Standard Drinks/Week Comments No 0 (1 standard drink = 0.6 oz pur e alcohol) Comments Unknown Sex and Gender Information Value Date Recorded Sex Assigned at Not on file 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 Gender Identity Female 10/22/2020 10:16 AM CDT Sexual Orientation Straight 10/22/2020 10 :16 AM CDT Obstetrics History Last Filed Vital Signs Vital Sign Reading Time Taken Comments Blood Pressure 140/71 05/31/2024 8:59 AM CDT Pulse 77 05/31/2024 8:59 AM CDT Temperature 36.6 C (97.8 F) 05/31/2024 8:59 AM CDT Respiratory Rate 18 05/31/2024 8:59 AM CDT Oxygen Saturation 98% 05/31/2024 8:59 AM CDT Inhaled Oxygen Concentration - - Weight 113.7 kg (250 lb 9.6 oz) 05/31/2024 8:59 AM CDT Height 157.5 cm (5' 2 ) 05/31/2024 8:59 AM CDT Body Mass Index 45.84 05/31/2024 8:59 AM CDT Plan of Treatment Health Maintenance Due Date Last Done Comments Hepatitis B Screening 06/05/1973 Osteoporosis Screening-Bone Density Scan 08/20/2010 08/20/2008 Breast Cancer Screening-Mammogram 05/21/2017 017, 05/01/2015 Depression Screening 12/24/2017 12/24/2016 Colon Cancer Screening-Colonoscopy 02/08/20192009 Pneumococcal vaccine 65+ (2 of 2 - PCV) 07/08/2019 0 07/07/2018 Well Visit 65+ 06/05/2020 12/24/2016 DTaP/Tdap/Td Vaccine (3 - Td or Tdap) 11/05/2021, 02/08/2009 Fall Risk Assessment 12/25/2021 12/25/2020 Influenza Vaccine (Season Ended) 2024 Colon Cancer Screening-CT Colonography Discontinued Colon Cancer Screening-DNA Stool Discontinued 02/08/19 10 Colon Cancer Screening-FIT Discontinued 02/08/2009 Colon Cancer Screening-Sigmoidoscopy Discontinued 02/2009 Hepatitis C Screening Completed 12/10/2016, 017 Zoster Vaccine Completed 11/24/2021, 07/18/2021 Procedures Procedure Name Priority Date/Time Associated Diagnosis Comments ME ARTHROCENTESIS ASPIR&/INJ MAJOR JT/BURSA W/O US Routine 05/30/2024 9:00 AM CDT Primary osteoarthritis of right knee HEPATITIS C AB REFLEX RNA QUANT PCR Routine 12/10/2016 8:45 AM CDT MAMMOGRAPHY Routine 05/21/2016 COLONOSCOPY Routine 02/08/2009 DEXA SCAN Routine 08/20/2008 from Last 3 Months or Most Recently Relevant to Health Maintenance Results * ME ARTHROCENTESIS ASPIR&/INJ MAJOR JT/BURSA W/O US (05/30/2024 9:00 AM CDT) Narrative Guido Mack MD - 05/30/2024 9:00 AM CDT Guido Mack MD 05/30/2024 12:51 PM Large Joint (Hip, Knee, Shoulder) Injection: R knee Performed by: Mandie Dumont PA Authorized by: Mandie Dumont PA Large Joint Injection/Aspiration: Consent Given by: Patient Site marked: the procedure site was marked Timeout: prior to procedure the correct patient, procedure, and site was verified Verbal consent obtained: Yes Supporting Documentation: Indications: Pain Procedure Details: Location: Knee Site: R knee Needle Size: 22 G Approach: Anterolateral Ultrasound guided: No Fluroscopic guidance: No Medications: 80 mg methylPREDNISolone acetate 80 mg/mL; 3 mL lidocaine 20 mg/mL (2 %) Patient tolerance: Patient tolerated the procedure well with no immediate complications us Mandie WILLETT IN CLINIC/BEDSIDE ORD ERABLES Final Result * Hepatitis C Antibody Reflex Hepatitis C RNA Quantitative PCR (12/10/2016 8:45 AM CDT) Hep C Ab Negative Negative ERIC MENDOZA Blood specimen (specimen) 12/10/2016 8:45 AM CDT 12/10/2016 2:36 PM CDT Guido Isabel MD LAB MICROBIOLOGY - GENE RAL ORDERABLES Final Result ERIC MENDOZA [id number] Department [place] [address] * MAMMOGRAPHY (05/21/2016) [facility] Mammogram Normal Historical Provider HEALTH MAINTENANCE Final Result * COLONOSCOPY (02/08/2009) [facility] Colonoscopy Unknown Comment:Per Next Gen Caregui delines Historical Provider HEALTH MAINTENANCE Final Result * DEXA SCAN (08/20/2008) [facility] DEXA Scan Normal Historical Provider HEALTH MAINTENANCE Final Result from Last 3 Months or Most Recently Relevant to Health Maintenance Insurance [facility] MEDICARE ADVANTAGE [facility] MED[facility] Address: [facility] [address] [place] [address] [facility] MDCR HMO REF [facility] MEDIC[facility] Address: [address] [address] [place] [address] [place] [address] [facility] MEDICARE ADVANTAGE [facility] MEDIC[facility] Address: [phone] [place] [address] Care Teams Plating Foreman Relationship Specialty Start Date End Date Morro Piedra MD PCP - General Family Medicine 12/08/18 Rosy Del Rosario MD [address] [address] Referring Physician Gynecology 12/08/18
--- OUTSIDE RECORDS SUMMARY | 2024-06-19 07:19 | XMS_ITS | Clinical Summary ---
Author Organization [facility] Address [address] [place] [address] Care Team Providers Care Supreme [address] Justice Name Role Phone Morro Piedra MD Primary Care Provider [phone] Source Comments [facility],non-owned Affiliates and Associated Physician Practices is amultiple site organization consisting of ambulatory clinics and hospital sitesin [place], [place], [place] and [place]. This disclosure is being madepursuant to the Care Everywhere program and may not contain all information available regarding this patient. Last updated 17.[employer] [facility] Allergies Active Allergy Reactions Criticality Noted Date Comments Amlodipine Base Swelling Low 05/09/2015 Lisinopril Cough Naproxen Nausea and/or Vomiting Reaction: Gastrointestinal Intolerance, Nsaids Nausea and/or Vomiting 01/20/2016 Thimerosal Urticaria Medium Tolmetin Nausea and/or Vomiting 01/20/2016 Medications * Be aware that medications may not be up to date on this document. Alwaysverify current medications with the patient. metoprolol tartrate (LOPRESSOR) 50 MG tablet Take by mouth. 6 Active [place]-3 Fatty Acids (FISH OIL) 1200 MG Take 1,200 mg by mouth DAILY. 7 Active vitamin D (CHOLECACIFEROL ) 5000 UNITS capsule Take 1 (one) capsule by mouth DAILY 7 Active losartan-hydroC HLOROthiazide (HYZAAR) 100-12.5 MG tablet Take by mouth. 6 Active albuterol HFA (VENTOLIN HFA) 108 (90 BASE) MCG/ACT inhaler Inhale by mouth. 6 Active Multiple Vitamin (MULTI VITAMIN PO) Active TRELEGY ELLIPTA 200-62.5-25 MCG/INH AEPB INHALE 1 PUFF ONCE DAILY 2 Active ALPRAZolam (Xanax) 0.25 MG tablet Take 1 (one) tablet by mouth 2 times daily as needed 3 Active biotin 5 MG tablet Take 1 (one) tablet by mouth once daily Active coenzyme Q10 100 MG capsule 3 Active escitalopram (Lexapro) 10 MG tablet Take 1 (one) tablet by mouth once daily 3 Active fenofibrate (Tricor) 145 MG tablet Take 1 (one) tablet by mouth once daily 3 Active fluticasone propionate (Flonase) 50 MCG/ACT nasal spray [facility] 1 spray every day by intranasal route. Active hydroCHLOROthia zide (Microzide) 12.5 MG capsule TAKE 1 CAPSULE BY MOUTH ONCE DAILY WITH LOSARTAN Active OneTouch Verio test strip USE TO TEST BLOOD GLUCOSE DAILY 3 Active Lancets (ONETOUCH DELICA PLUS 33G EXTRA FINE LANCET) USE TO CHECK BLOOD GLUCOSE DAILY 3 Active latanoprost (Xalatan) 0.005 % ophthalmic solution by Ophthalmic route at bedtime 2 Active levoFLOXacin (Levaquin) 750 MG tablet TAKE 1 TABLET BY MOUTH EVERY 48 HOURS FOR 2 DOSES 2 Active losartan (Cozaar) 100 MG tablet Take 1 tablet by mouth daily with HCTZ Active lovastatin (Mevacor) 20 MG tablet Take 1 (one) tablet by mouth once daily 3 Active meloxicam (Mobic) 15 MG tablet Take 1 (one) tablet by mouth once daily 3 Active metFORMIN (Glucophage) 1000 MG tablet Take 1 (one) tablet by mouth 2 times daily with morning and evening meal 3 Active traZODone (Desyrel) 50 MG tablet Take 1 tablet as needed by oral route at bedtime. Active zolpidem (Ambien) 10 MG tablet Take 1 (one) tablet by mouth nightly as needed 3 Active ascorbic acid (Vitamin C) 500 MG tablet Take 1 (one) tablet by mouth once daily With iron 90 tablet 3 3 Active ferrous sulfate 325 (65 FE) MG tablet Take 1 (one) tablet by mouth once daily With vitamin c 500 mg 90 tablet 3 3 Active cyanocobalamin (Vitamin B-12) injection 1000 mcg IM weekly x 4 weeks, then monthly 4 mL 11 3 Active Active Problems Problem Noted Date Diagnosed Date Asthma, moderate persistent 05/13/2020 Insomnia 03/24/2018 Knee pain 03/24/2018 Morbid obesity 03/24/2018 Inadequate sleep hygiene 03/24/2018 Nocturia 03/24/2018 Degenerative joint disease of right knee 018 Family history of CVA 12/22/2017 Type 2 diabetes mellitus 12/02/2017 Hypertriglyceridemia 03/16/2017 Abnormal glucose 12/24/2016 Benign paroxysmal positional vertigo of right ea r 12/24/2016 Right wrist tendinitis 10/26/2016 ROSA (obstructive sleep apnea) 02/12/2016 Heel spur 01/20/2016 Plantar fasciitis, left 01/20/2016 Plantar fasciitis, right 01/20/2016 Vitamin D deficiency 12/13/2012 Overview (03/24/2018): Overview: Hypovitaminosis D Benign hypertension 10/30/2010 Overview (03/24/2018): Overview: Benign Hypertension Immunizations Immunization Administration Dates Next Due PNEUMOCOCCAL PPSV23 07/07/2018 TDAP (7yrs+) 11/06/2011,02/08/2009 Zoster Hzv Vacc Recombinant Inj Im 11/24/2021, Family History Medical History Relation Name Comments CAD (Coronary Artery Disease) Brother 1 COPD - Chronic Obstructive Pulmonary Disease Brother 1 Heart Disease Brother 1 Status: Deceas ed Migraine Daughter Alzheimer's Disease Father Hypertension Father Status: d Alzheimer's Disease Mother Hypertension Mother Status: d None Known Son Status: Alive Relation Name Status Comments Brother 1 Brother 2 -premie Child miscarriage 7 mo-non susan Daughter Alive Father Mother Son Alive Social History Tobacco Use Types Packs/Day Years Used Date Smoking Tobacco: Former Cigarettes 1 23 1 971 - 1993 Smokeless Tobacco: Never Tobacco Cessation:Counseling Given: Not Answered Alcohol Use Standard Drinks/Week Comments No 0 (1 standard drink = 0.6 oz pur e alcohol) Comments Unknown Sex and Gender Information Value Date Recorded Sex Assigned at Female 01/07/2021 8:47 PM TAX ASSOCIATE Legal Sex Female 5:18 PM TAX ASSOCIATE Gender Identity Female 01/07/2021 8:47 PM TAX ASSOCIATE Sexual Orientation Straight 01/07/2021 8: 47 PM TAX ASSOCIATE 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 [employer] Not on file Not on file Not on fi le Last Filed Vital Signs Vital Sign Reading Time Taken Comments Blood Pressure 147/85 09/08/2022 10:35 AM CDT Pulse 82 09/08/2022 10:35 AM CDT Temperature - - Respiratory Rate - - Oxygen Saturation - - Inhaled Oxygen Concentration - - Weight 101.6 kg (224 lb) 09/08/2022 10:35 AM CDT Height 160 cm (5' 3 ) 09/08/2022 10:35 AM CDT Body Mass Index 39.68 09/08/2022 10:35 AM CDT Plan of Treatment Health Maintenance Due Date Last Done Comments BONE DENSITY TESTING 1955 COLOGUARD (AGES 45-75) - COLON CA SCREENING 1955 COLON MONITORING 1955 COLONOSCOPY - COLON CA SCREENING 1955 CT COLONOGRAPHY - COLON CA SCREENING 1955 Colorectal Cancer Screening 1955 FIT - COLON CA SCREENING 1955 FLEX SIG - COLON CA SCREENING 1955 MAMMOGRAM 1955 HEPATITIS C SCREENING 06/01/1973 Respiratory Syncytial Virus (RSV) Vaccine Pt: or over 60 yrs (1 - Risk 60-74 years 1-dose series) 2015 DIABETES RETINOPATHY SCREENING 03/24/2018 DIABETES-FOOT EXAM WITH MONOFILAMENT 03/24/2018 PNEUMOCOCCAL VACCINE 50+ (2 of 2 - PCV) 07/08/2019 07/07/2018 DTAP/TDAP/TD VACCINES (3 - Td or Tdap) 11/05/2021 11/06/2011, 02/08/2009 DIABETES-SERUM CREATININE 10/10/20222021, 10/10/2021, 10/09/2021, Additional history exists DIABETES-HGB A1C 03/14/2023 09/11/2022, 02/2021, 07/21/2021 COVID-19 VACCINE ( season) 2023 DEPRESSION SCREENING 02/09/2024 DIABETES - URINE PROTEIN SCREENING 02/09/2024 MEDICARE AWV CALENDAR YEAR 2024 INFLUENZA VACCINE (Season Ended) 2024 ZOSTER VACCINE Completed 11/24/2021, 07/18/2021 HEPATITIS B VACCINE Aged Out No longe r eligible based on patient's age to complete this topic HIB VACCINE Aged Out No longer eligi ble based on patient's age to complete this topic HPV VACCINE Aged Out No longer eligi ble based on patient's age to complete this topic MENINGOCOCCAL (Group B) VACCINE SHARED DECISION-MAKING Aged Out No longer eligible based on patient's age to complete this topic MENINGOCOCCAL GROUPS A/C/Y/W VACCINE Aged Out No longer eligible based on patient's age to complete this topic Procedures Procedure Name Priority Date/Time Associated Diagnosis Comments HEMOGLOBIN A1C Routine 09/11/2022 8:40 AM CDT Obesity, Class II, BMI 35-39.9 Type 2 diabetes mellitus with hyperglycemia, without long-term current use of insulin from Last 3 Months or Most Recently Relevant to Health Maintenance Results * (ABNORMAL) HEMOGLOBIN A1C (09/11/2022 8:40 AM CDT) Hemoglobin A1c 6.7(H) <5.7 % of total Hgb [facility] Comment: For someone without known diabetes, a hemoglobin A1c value of 6.5% or greater indicates that they may have diabetes and this should be confirmed with a follow-up test. For someone with known diabetes, a value <7% indicates that their diabetes is well controlled and a value greater than or equal to 7% indicates suboptimal control. A1c targets should be individualized based on duration of diabetes, age, comorbid conditions, and other considerations. Currently, no consensus exists regarding use of hemoglobin A1c for diagnosis of diabetes for children. REPORT COMMENT: FASTING:YES Test Performed at: [facility] [id number] [place] [id number] SU GUILLEN MD Blood BLOOD SPECIMEN / Unknown 09/11/2022 8:40 AM CDT 09/11/2022 8:40 AM CDT Vidhi Jordanbridger APNP-[facility] - CHEMISTRY ORDERABLES Final Result [facility] [id number] [place] [id number] from Last 3 Months or Most Recently Relevant to Health Maintenance Insurance [facility] MANAGED MEDICARE ADV [facility] MANAGED MEDICARE ADV Care Teams Supreme [address] Justice Relationship Specialty Start Date End Date Morro Piedra MD PCP - General 08/13/21
--- OUTSIDE RECORDS SUMMARY | 2024-06-19 07:19 | XMS_ITS | Data Portability ---
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 Plan of Treatment Reminders Order Date Submit Date Provider Last Modified By Organization Details Last Modified Time Details Appointments None recorded. Lab lipid panel, serum 2018 019 DAISHA [facility], [address], [place], [address], 9 14:09:49 CMP, serum or plasma 2018 019 DAISHA [facility], [address], [address], [place], [address], 9 14:09:48 HbA1c (hemoglobi n A1c), blood 2018 019 DAISHA [facility], [address] [facility], [address], [place], [address], 9 14:09:50 microalbum in/creatin ine, mass ratio, urine 2018 019 DAISHA [facility], [address], [address], [place], [address], 9 14:09:50 urinalysis complete, reflex culture 2018 019 DAISHA [facility], [address] [facility], [address], [place], [address], 9 14:09:48 CMP, serum or plasma 2018 019 [place] [address] [facility], [address], [address], [place], [address], 0 07:59:00 HbA1c (hemoglobi n A1c), blood 2018 019 DAISHA [facility], [address], [place], [address], 9 12:07:12 lipid panel, serum 2017 018 DAISHA [facility], [address], [address], [place], [address], 8 06:07:08 HbA1c (hemoglobi n A1c), blood 2017 018 DAISAH [facility], [address], [place], [address], 8 06:07:08 CMP, serum or plasma 2017 018 DAISHA [facility], [address], [place], [address], 8 06:07:07 Referral orthopedic referral - Please call pt to schedule [facility], Thank you 2017 018 [facility] [address] [place], [address], 8 16:52:58 Procedures None recorded. Surgeries None recorded. Imaging XR, hip, bilateral - left hip pain while trying to help carry 60in TV; r/o fx 2017 018 peter [facility] ([facility] Scheduling, [address] [place], [address], 8 14:52:34 Medication Orders trazodone 50 mg tablet 2018 019 [facility], [address] [place] [address], [address], 9 10:15:38 losartan 100 mg-hydroch lorothiazi de 12.5 mg tablet 2017 018 [facility], [address] [place] [address], [address], 8 10:31:21 metoprolol tartrate 50 mg tablet 2017 [place] [address], [address] [place] [address], [address], 8 10:31:22 triamcinol one acetonide 0.5 % topical cream 2017 018 [facility], [address] [place] [address], [address], 9 09:51:39 Patient TargetsNo targets recorded. Patient Instructions Encounter Date Encounter Id Patient Instructions Last Modified By Organization Details Last Modified Time 07/07/2018 [id number] asthma: your action plan jdepilio Not available 07/07/2018 10:11:18 Reason for Referral Orthopedic Referral for Knee pain Please call pt to schedule appointment, Thank you Referring Physician: Earline Durán, Internal Medicine, Encounter Date: 10/18/2017 Results Created Date Observation Date Name Description Value Unit Range Abnormal Flag Note LastModifiedBy Organization Detail LastModifiedTime 10/19/19 18 10/19/2017 CMP, serum or plasm a glucose 155 mg/dL 65-99 above high normal Not Available [facility] ([facility]) [address] [facility], [place], [address], 10/19/2017 06:07:07 10/19/19 18 10/19/2017 CMP, serum or plasm a BUN 12 mg/dL 8-27 Not Available [facility] ([facility]) [address] [facility] [place], [address], 10/19/2017 06:07:07 10/19/19 18 10/19/2017 CMP, serum or plasm a creatinine 0.63 mg/dL 0.57-1 .00 Not Available [facility] ([facility]) [address] [facility] [place], [address], 10/19/2017 06:07:07 10/19/19 18 10/19/2017 CMP, serum or plasm a eGFR if nonafricn AM 96 mL/mi n/1.7 3 >59 Not Available [facility] ([facility]) [address] [facility] [place], [address], 10/19/2017 06:07:07 10/19/19 18 10/19/2017 CMP, serum or plasm a eGFR if africn AM 111 mL/mi n/1.7 3 >59 Not Available [facility] ([facility]) [address] [facility], [place], [address], 10/19/2017 06:07:07 10/19/19 18 10/19/2017 CMP, serum or plasm a BUN/creatini ne ratio 19 12-28 Not Available [facility] ([facility]) [address] [facility] [place], [address], 10/19/2017 06:07:07 10/19/19 18 10/19/2017 CMP, serum or plasm a sodium 143 mmol/ L 134-14 4 Not Available [facility] ([facility]) [address] [facility] [place], [address], 10/19/2017 06:07:07 10/19/1910/19/2017 CMP, serum or plasm a potassium 4.5 mmol/ L 3.5-5. 2 Not Available [facility] ([facility]) [address] [facility] [place], [address], 10/19/2017 06:07:07 09/10/10/19/2017 CMP, serum or plasm a chloride 100 mmol/ L 96-106 Not Available [facility] ([facility]) [address] [facility] [place], [address], 10/19/2017 06:07:07 10/19/1910/19/2017 CMP, serum or plasm a carbon dioxide, total 28 mmol/ L 20-29 Not Available [facility] ([facility]) [address] [facility] [place], [address], 10/19/2017 06:07:07 10/19/1910/19/2017 CMP, serum or plasm a calcium 9.9 mg/dL 8.7-10 .3 Not Available [facility] ([facility]) [address] [facility], [place], [address], 10/19/2017 06:07:07 10/19/1910/19/2017 CMP, serum or plasm a protein, total 6.7 g/dL 6.0-8. 5 Not Available [facility] ([facility]) [address] [facility] [place], [address], 10/19/2017 06:07:07 10/19/1910/19/2017 CMP, serum or plasm a albumin 4.0 g/dL 3.6-4. 8 Not Available [facility] ([facility]) [address] [facility] [place], [address], 10/19/2017 06:07:07 10/19/1910/19/2017 CMP, serum or plasm a globulin, total 2.7 g/dL 1.5-4. 5 Not Available [facility] ([facility]) [address] [facility] [place], [address], 10/19/2017 06:07:07 10/19/1910/19/2017 CMP, serum or plasm a A/G ratio 1.5 1.2-2. 2 Not Available [facility] ([facility]) [address] [facility] [place], [address], 10/19/2017 06:07:07 10/19/19 18 10/19/2017 CMP, serum or plasm a bilirubin, total 0.4 mg/dL 0.0-1. 2 Not Available [facility] ([facility]) [address] [place], [address], 10/19/2017 06:07:07 10/19/19 18 10/19/2017 CMP, serum or plasm a alkaline phosphatase 107 IU/L 39-117 Not Available [facility] ([facility]) [address] [place], [address], 10/19/2017 06:07:07 10/19/19 18 10/19/2017 CMP, serum or plasm a AST (SGOT) 36 IU/L 0-40 Not Available [facility] ([facility]) [address] [place], [address], 10/19/2017 06:07:07 10/19/19 18 10/19/2017 CMP, serum or plasm a ALT (SGPT) 40 IU/L 0-32 above high normal Not Available [facility] ([facility]) [address] [place], [address], 10/19/2017 06:07:07 10/19/19 18 10/19/2017 lipid panel , serum cholesterol, total 179 mg/dL 100-19 9 Not Available [facility] ([facility]) [address] [facility] [place], [address], 10/19/2017 06:07:08 10/19/19 18 10/19/2017 lipid panel , serum triglyceride s 421 mg/dL 0-149 above high normal Not Available [facility] ([facility]) [address] [facility], [address], 10/19/2017 06:07:08 10/19/19 18 10/19/2017 lipid panel , serum HDL cholesterol 30 mg/dL >39 below low normal Not Available [facility] ([facility]) [address] [facility], [place], [address], 10/19/2017 06:07:08 10/19/19 18 10/19/2017 lipid panel , serum VLDL cholesterol maurice Commen t mg/dL 5-40 The calcu latio n for the VLDL jael stero l is not valid when trigl yceri de level is >400 mg/dL . Not Available [facility] ([facility]) [address] [facility], [place], [address], 10/19/2017 06:07:08 10/19/19 18 10/19/2017 lipid panel , serum LDL cholesterol calc Commen t mg/dL 0-99 Trigl yceri de resul t indic ated is too high for an accur ate LDL jael stero l estim ation . 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 6 above high normal Predi abete s: 5.7 - 6.4 Diabe adebayo: >6.4 Glyce domitila contr ol for adult s with diabe adebayo: <7.0 Not Available [facility] ([facility]) [address] [facility], [place], [address], 10/19/2017 06:07:08 07/09/1907/09/2018 CMP, serum or plasm a glucose 120 mg/dL 65-99 above high normal Not Available [facility] ([facility]) [address] [place], [address], 07/11/2018 14:09:48 07/09/1907/09/2018 CMP, serum or plasm a BUN 14 mg/dL 8-27 Not Available [facility] ([facility]) [address] [facility] [place], [address], 07/11/2018 14:09:48 07/09/1907/09/2018 CMP, serum or plasm a creatinine 0.69 mg/dL 0.57-1 .00 Not Available [facility] ([facility]) [address] [facility] [place], [address], 07/11/2018 14:09:48 07/09/19 19 07/09/2018 CMP, serum or plasm a eGFR if nonafricn AM 93 mL/mi n/1.7 3 >59 Not Available [facility] ([facility]) [address] [facility] [place], [address], 07/11/2018 14:09:48 07/09/1907/09/2018 CMP, serum or plasm a eGFR if africn AM 107 mL/mi n/1.7 3 >59 Not Available [facility] ([facility]) [address] [facility] [place], [address], 07/11/2018 14:09:48 07/09/1907/09/2018 CMP, serum or plasm a BUN/creatini ne ratio 20 12-28 Not Available [facility] ([facility]) [address] [facility] [place], [address], 07/11/2018 14:09:48 07/09/1907/09/2018 CMP, serum or plasm a sodium 142 mmol/ L 134-14 4 Not Available [facility] ([facility]) [address] [facility] [place], [address], 07/11/2018 14:09:48 07/09/1907/09/2018 CMP, serum or plasm a potassium 4.5 mmol/ L 3.5-5. 2 Not Available [facility] ([facility]) [address] [place], [address], 07/11/2018 14:09:48 07/09/1907/09/2018 CMP, serum or plasm a chloride 102 mmol/ L 96-106 Not Available [facility] ([facility]) [address] [facility] [place], [address], 07/11/2018 14:09:48 07/09/19 19 07/09/2018 CMP, serum or plasm a carbon dioxide, total 25 mmol/ L 20-29 Not Available [facility] ([facility]) [address] [place], [address], 07/11/2018 14:09:48 07/09/1907/09/2018 CMP, serum or plasm a calcium 9.5 mg/dL 8.7-10 .3 Not Available [facility] ([facility]) [address] [place], [address], 07/11/2018 14:09:48 07/09/1907/09/2018 CMP, serum or plasm a protein, total 6.7 g/dL 6.0-8. 5 Not Available [facility] ([facility]) [address] [place], [address], 07/11/2018 14:09:48 07/09/19 19 07/09/2018 CMP, serum or plasm a albumin 4.1 g/dL 3.6-4. 8 Not Available [facility] ([facility]) [address] [place], [address], 07/11/2018 14:09:48 07/09/1907/09/2018 CMP, serum or plasm a globulin, total 2.6 g/dL 1.5-4. 5 Not Available [facility] ([facility]) [address] [place] [address], [address], 07/11/2018 14:09:48 07/09/1907/09/2018 CMP, serum or plasm a A/G ratio 1.6 1.2-2. 2 Not Available [facility] ([facility]) [address] [place], [address], 07/11/2018 14:09:48 07/09/1907/09/2018 CMP, serum or plasm a bilirubin, total 0.2 mg/dL 0.0-1. 2 Not Available [facility] ([facility]) [address] [place], [address], 07/11/2018 14:09:48 07/09/1907/09/2018 CMP, serum or plasm a alkaline phosphatase 90 IU/L 39-117 Not Available [facility] ([facility]) [address] [place], [address], 07/11/2018 14:09:48 07/09/1907/09/2018 CMP, serum or plasm a AST (SGOT) 16 IU/L 0-40 Not Available [facility] ([facility]) [address] [place], [address], 07/11/2018 14:09:48 07/09/1907/09/2018 CMP, serum or plasm a ALT (SGPT) 17 IU/L 0-32 Not Available [facility] ([facility]) [address] [place], [address], 07/11/2018 14:09:48 07/09/1907/09/2018 urina lysis compl ete, refle x cultu re specific gravity 1.020 1.005- 1.030 Not Available [facility] ([facility]) [address] [place], [address], 07/11/2018 14:09:48 07/09/1907/09/2018 urina lysis compl ete, refle x cultu re pH 5.5 5.0-7. 5 Not Available [facility] ([facility]) [address] [place], [address], 07/11/2018 14:09:48 05/31/20 19 07/09/2018 urina lysis compl ete, refle x cultu re urine-color Yellow yellow Not Available [facility] ([facility]) [address] [place], [address], 07/11/2018 14:09:48 07/09/19 19 07/09/2018 urina lysis compl ete, refle x cultu re appearance Clear clear Not Available [facility] ([facility]) [address] [place], [address], 07/11/2018 14:09:48 07/09/1907/09/2018 urina lysis compl ete, refle x cultu re WBC esterase 3+ negati ve abnormal Not Available [facility] ([facility]) [address] [place], [address], 07/11/2018 14:09:48 07/09/19 19 07/09/2018 urina lysis compl ete, refle x cultu re protein Negati ve negati ve/tra ce Not Available [facility] ([facility]) [address] [place], [address], 07/11/2018 14:09:48 07/09/19 19 07/09/2018 urina lysis compl ete, refle x cultu re glucose Negati ve negati ve Not Available [facility] ([facility]) [address] [place], [address], 07/11/2018 14:09:48 07/09/1907/09/2018 urina lysis compl ete, refle x cultu re ketones Negati ve negati ve Not Available [facility] ([facility]) [address] [place], [address], 07/11/2018 14:09:48 07/09/19 19 07/09/2018 urina lysis compl ete, refle x cultu re occult blood Trace negati ve abnormal Not Available [facility] ([facility]) [address] [facility], [place], [address], 07/11/2018 14:09:48 07/09/19 19 07/09/2018 urina lysis compl ete, refle x cultu re bilirubin Negati ve negati ve Not Available [facility] ([facility]) [address] [facility], [place], [address], 07/11/2018 14:09:48 07/09/19 19 07/09/2018 urina lysis compl ete, refle x cultu re urobilinogen ,semi-qn 0.2 mg/dL 0.2-1. 0 Not Available [facility] ([facility]) [address] [facility], [place], [address], 07/11/2018 14:09:48 07/09/19 19 07/09/2018 urina lysis compl ete, refle x cultu re nitrite, urine Negati ve negati ve Not Available [facility] ([facility]) [address] [facility], [place], [address], 07/11/2018 14:09:48 07/09/1907/09/2018 urina lysis compl ete, refle x cultu re microscopic examination See below: Micro scopi c was indic ated and was perfo rmed. Not Available [facility] ([facility]) [address] [facility], [place], [address], 07/11/2018 14:09:48 07/09/1907/09/2018 urina lysis compl ete, refle x cultu re WBC >30 /hpf 0 - 5 abnormal Clump s of leuko cytes prese nt. Not Available [facility] ([facility]) [address] [facility], [place], [address], 07/11/2018 14:09:48 07/09/19 19 07/09/2018 urina lysis compl ete, refle x cultu re RBC 0-2 /hpf 0 - 2 Not Available [facility] ([facility]) [address] [facility], [place], [address], 07/11/2018 14:09:48 07/09/1907/09/2018 urina lysis compl ete, refle x cultu re epithelial cells (non renal) 0-10 /hpf 0 - 10 Not Available [facility] ([facility]) [address] [facility], [place], [address], 07/11/2018 14:09:48 07/09/1907/09/2018 urina lysis compl ete, refle x cultu re epithelial cells (renal) 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 [facility] ([facility]) [address] [facility], [place], [address], 07/11/2018 14:09:48 07/09/1907/09/2018 urina lysis compl ete, refle x cultu re casts 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 [facility] ([facility]) [address] [facility], [place], [address], 07/11/2018 14:09:48 07/09/1907/09/2018 urina lysis compl ete, refle x cultu re cast type 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 [facility] ([facility]) [address] [facility], [place], [address], 07/11/2018 14:09:48 07/09/1907/09/2018 urina lysis compl ete, refle x cultu re crystals Presen t n/a abnormal Not Available [facility] ([facility]) [address] [facility], [place], [address], 07/11/2018 14:09:48 07/09/1907/09/2018 urina lysis compl ete, refle x cultu re crystal type Calciu m Oxalat e n/a Not Available [facility] ([facility]) [address] [place], [address], 07/11/2018 14:09:48 07/09/19 19 07/09/2018 urina lysis compl ete, refle x cultu re mucus threads Presen t not estab. 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 [facility] ([facility]) [address] [facility], [place], [address], 07/11/2018 14:09:48 07/09/19 19 07/09/2018 urina lysis compl ete, refle x cultu re trichomonas 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 [facility] ([facility]) [address] [facility], [place], [address], 07/11/2018 14:09:48 07/09/19 19 07/09/2018 urina lysis compl ete, refle x cultu re comment 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 Not Available [facility] ([facility]) [address] [facility], [place], [address], 07/11/2018 14:09:48 07/09/19 19 07/11/2018 urina lysis compl ete, refle x cultu re urine culture, routine Final report abnormal Not Available [facility] ([facility]) [address] [facility], [place], [address], 07/11/2018 14:09:48 07/09/19 19 07/11/2018 urina lysis compl ete, refle x cultu re result 1 Escher ichia coli abnormal 50,00 0-100 ,000 colon y formi ng units per mL Cefaz sukhdev <=4 ug/mL Cefaz sukhdev with an DOMITILA <=16 predi cts susce ptibi lity to the oral agent s cefac humera, cefdi eden, cefpo doxim e, cefpr ozil, cefur oxime , cepha lexin , and lorac arbef when used for thera py of uncom plica rojelio urina ry tract infec tions due to E. coli, Klebs iella pneum oniae , and Prote us mirab ilis. Not Available [facility] ([facility]) [address] [facility], [place], [address], 07/11/2018 14:09:48 07/09/19 19 07/11/2018 urina lysis compl ete, refle x cultu re antimicrobia l susceptibili ty Commen t S = Susce ptibl e; I = Inter media te; R = Resis tant P = Posit akin; N = Negat akin MICS are expre ssed in micro grams per mL Antib iotic RSLT# 1 RSLT# 2 RSLT# 3 RSLT# 4 Amoxi cilli n/Cla vulan ic Acid S Ampic illin R Cefep esperanza S Ceftr iaxon e S Cefur oxime S Cipro floxa kayleen S Ertap enem S Genta micin S Imipe nem S Levof loxac in S Merop enem S Nitro furan toin S Piper acill in/Ta zobac swenson S Tetra cycli ne S Tobra mycin S Trime thopr im/[place] lfa S Not Available [facility] ([facility]) [address] [facility], [place], [address], 07/11/2018 14:09:48 07/09/19 19 07/09/2018 lipid panel , serum cholesterol, total 185 mg/dL 100-19 9 Not Available [facility] ([facility]) [address] [place], [address], 07/11/2018 14:09:49 07/09/19 19 07/09/2018 lipid panel , serum triglyceride s 413 mg/dL 0-149 above high normal Not Available [facility] ([facility]) [address] [place], [address], 07/11/2018 14:09:49 07/09/19 19 07/09/2018 lipid panel , serum HDL cholesterol 33 mg/dL >39 below low normal Not Available [facility] ([facility]) [address] [facility], [place], [address], 07/11/2018 14:09:49 07/09/1907/09/2018 lipid panel , serum VLDL cholesterol maurice Commen t mg/dL 5-40 The calcu latio n for the VLDL jael stero l is not valid when trigl yceri de level is >400 mg/dL . Not Available [facility] ([facility]) [address] [facility], [place], [address], 07/11/2018 14:09:49 07/09/1907/09/2018 lipid panel , serum LDL cholesterol calc Commen t mg/dL 0-99 Trigl yceri de resul t indic ated is too high for an accur ate LDL jael stero l estim ation . 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 Not Available [facility] ([facility]) [address] [facility] [place], [address], 07/11/2018 14:09:50 07/09/19 19 07/09/2018 micro album in/cr eatin ine, mass ratio , urine albumin, urine 15.3 ug/mL not estab. Not Available [facility] ([facility]) [address] [facility], [place], [address], 07/11/2018 14:09:50 07/09/19 19 07/09/2018 micro album in/cr eatin ine, mass ratio , urine alb/creat ratio 11.7 mg/g_ creat 0.0-30 .0 Jaleesa l: 0.0 - 30.0 Album inuri a: 31.0 - 300.0 Clini maurice album inuri a: >300. 0 Not Available [facility] ([facility]) [address] [facility], [place], [address], 07/11/2018 14:09:50 07/09/1907/09/2018 HbA1c (hemo globi n A1c), blood hemoglobin A1C 6.6 % 4.8-5. 6 above high normal Predi abete s: 5.7 - 6.4 Diabe adebayo: >6.4 Glyce domitila contr ol for adult s with diabe adebayo: <7.0 Not Available [facility] ([facility]) [address] [facility] [place], [address], 07/11/2018 14:09:50 11/23/19 18 11/17/2017 XR, hip, bilat eral No observ ation record ed. jde[facility]to [facility]) Scheduling [address] [place], [address], 12/02/2017 11:25:36 01/20/20 18 01/19/2018 nucle ar stres s test No observ ation record ed. [facility] [address], [place], [address], 01/20/2018 08:29:54 01/21/20 18 01/19/2018 US, echoc ardio gram No observ ation record ed. [facility] [address], [place], [address], 01/20/2018 16:02:25 Result Notes None recorded. Problems Name Problem SNOMED Code Status Onset Date Resolution Date Notes Provider Name and Address Organization Details Recorded Time Hypertrigly ceridemia 804502623 Active 2017 Earline Durán PA-C Attn: Jada ley,[address] [facility], [place], [address], [facility] 8 14:33:23 Type 2 diabetes mellitus 29497275 Active 2017 Earline Durán PA-C Attn: Jada ley,[address] [facility], [place], [address], [place] [facility] 8 10:34:26 Hypertensiv e disorder 73259135 Active [place] [facility] 6 08:59:03 Morbid obesity 460469506 Active [place] [facility] 6 09:42:14 Knee pain Active [place] [facility] 6 09:42:14 Insomnia 744101488 Active [place] [facility] 6 08:59:03 Hyperlipide jatin 99717221 Completed 03/16/2017 Earline Durán PA-C Attn: Jada ley,[address] [facility], [place], [address], [place] [facility] 8 14:33:13 Mild asthma 802174529 Active Lor vásquez, [facility] 6 09:42:14 Hyperglyjim [facility] [place] [id number] Completed 12/02/2017 Earline Durán PA-C Attn: Jada ley,[address], [place], [address], [facility] - [facility] 8 10:33:48 Problem Notes None recorded. Procedures Surgical History Date Name Laterality Status Provider Name and Address Organization Details Recorded Time 06/09/19 18 Joint Injection completed Ike Rodriguez MD [address] [place], [address], [facility] 06/08/2017 10:55:49 02/08/19 18 Most Recent Mammogram completed Jordy Lira [facility] 06/29/2017 09:35:49 05/21/19 16 Date of Last Pap Smear completed Eddie Mcadams RN [facility] 06/29/2017 08:54:45 02/08/18 79 Dilation and Curettage completed Cleveland Stuart MA MD - [facility] 03/04/2015 14:21:17 02/08/18 60 Tonsillectomy completed Domenica Love MD - [facility] 6 14:16:20 Imaging Results Imaging Date Name Status LastModified by Organization Details LastModified Time 11/17/2017 XR, hip, bilateral completed [facility] Scheduling [address] [place], [address], 12/02/2017 11:25:36 01/19/2018 nuclear stress test [facility] [address], [place], [address], 01/20/2018 08:29:54 01/19/2018 US, echocardiogram completed [facility] [address], [place], [address], 01/20/2018 16:02:25 Procedure Notes None recorded. Medical Equipment None Reported. Allergies Allergen ID Allergen Name Allergen Category Reaction Reaction Severity Criticality Documentation Date Start Date Code Code System Note Provider Name and Address Organization Details Recorded Time 265366 Non-stero idal anti-infl ammatory agent (product) medicatio n hives Not available Not available 03/16/2017 81686 005 SNOMED motri n Claudia Moran DELILAHMally null, [place] - [facility] 8 14:14:50 88160 thimerosa l medicatio n hives Not available Not available 03/04/2015 24744 RxNorm Cleveland Stuart MA null, [place] - [facility] 6 14:16:06 42366 lisinopri l medicatio n cough Not available Not available 03/04/2015 95509 RxNorm Cleveland Stuart MA null, MD - [facility] 6 14:16:06 65451 amlodipin e medicatio n edema mild Not available 05/09/20152015 21945 RxNorm Lor Brown null, MD - [facility] 6 09:04:59 Medications Name Sig Start Date Stop Date Status Note LastModified by Organization Details LastModified Time metformin 500 mg tablet TAKE 1 TABLET BY MOUTH TWICE DAILY 2018 active Not Available Not Available Not Avai lable prednison e 10 mg tablet 03/16 completed Not Available Not Available Not Available trazodone 50 mg tablet Take 1 tablet as needed by oral route at bedtime. active Not Available Not Available No t Available triamcino lone acetonide 0.5 % topical cream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 [address], [facility] 07/07/2018 10:45:58 OBGyn Episode Ob Episode Information Episode Created Date Number of Fetuses Patient Bloodtype Patient rh Status Prepregnancy Weight lbs Domestic Partner Domestic Partner Phone Father Name Head Of Marketing Analytics Status 06/30/19 18 1 CLOSED Fetus Data First Name Last Name Admitted to NICU Weight (g) Sex Living Outcome Pediatric Complications Fetus ID Race Codes Race Delivery Type M Full Term [id number] Vaginal Giovany Calculation Initial Giovany Date Initial Exam Date Initial Exam Provider Initial Ultrasound Date Last Menstrual Period Date Ultra Sound Weeks Gestation 0 Eighteen To Twenty Week Giovany Update Ultra Sound Date Fundal Height At Umbil Quickening Date Ultra Sound Latest Weeks Gestation Final Giovany Confirmed By Final Giovany Confirmed Date Final Giovany Date Ultra Sound Latest Days Gestation 0 0 Menstrual History Last Menstrual Date Menses Monthly On Bcp Conception Prior Menses Frequency Hcg Plus Date Menarche Onset Age Delivery Information Delivery Date Delivery Type Labor Anesthesia Weeks Gestation Incision Type Labor Labor Length Hrs Delivered By Post Complications Tubal Sterilization Discharge Date Comments 4 Discharge Information Feeding Method Contraceptive Method Maternal HG B and HCT Levels Ob Episode Information Episode Created Date Number of Fetuses Patient Bloodtype Patient rh Status Prepregnancy Weight lbs Domestic Partner Domestic Partner Phone Father Name Head Of Marketing Analytics Status 06/30/19 18 1 CLOSED Fetus Data First Name Last Name Admitted to NICU Weight (g) Sex Living Outcome Pediatric Complications Fetus ID Race Codes Race Delivery Type F Full Term [id number] Vaginal Giovany Calculation Initial Giovany Date Initial Exam Date Initial Exam Provider Initial Ultrasound Date Last Menstrual Period Date Ultra Sound Weeks Gestation 0 Eighteen To Twenty Week Giovany Update Ultra Sound Date Fundal Height At Umbil Quickening Date Ultra Sound Latest Weeks Gestation Final Giovany Confirmed By Final Giovany Confirmed Date Final Giovany Date Ultra Sound Latest Days Gestation 0 0 Menstrual History Last Menstrual Date Menses Monthly On Bcp Conception Prior Menses Frequency Hcg Plus Date Menarche Onset Age Delivery Information Delivery Date Delivery Type Labor Anesthesia Weeks Gestation Incision Type Labor Labor Length Hrs Delivered By Post Complications Tubal Sterilization Discharge Date Comments 2 Discharge Information Feeding Method Contraceptive Method Maternal HG B and HCT Levels
--- OUTSIDE RECORDS SUMMARY | 2024-06-19 07:19 | XMS_ITS | Referral Summary ---
Author Organization [facility] Building [address] Address [address] [place] [address] Care Team Providers Care Camouflage Specialist Name Role Phone Morro Piedra MD Primary Care Provider [phone] Rosy Del Rosario MD Unavailable [phone] Encounters Date Type Department Care Team Description 05/31/2024 9:00 AM CDT Office Visit [facility] Pulmonary at [address] [place] [address] Chelo Gomez NP Moderate persistent asthma without complication (Primary Dx); Obstructive sleep apnea; Cigarette nicotine dependence in remission 05/30/2024 9:00 AM CDT Office Visit [facility] Orthopedics and Sports Medicine [address] [place] [address] [address] [place] [address] Mandie Dumont PA Primary osteoarthritis of right knee (Primary Dx) from Last 3 Months Allergies Active Allergy Reactions Criticality Noted Date [...] blood-glucose meter (True Metrix Air Glucose Meter) [facility] True Metrix Air Glucose Meter Active multivitamin with iron tablet Take by mouth Acti ve blood glucose diagnostic strip True Metrix Glucose Test Strip Active lancets 33 gauge [facility] TRUEplus Lancets 33 gauge Active omega-3 fatty [...] after use. Do not swallow. 60 each 06/01/19 25 026 Active Hospital, Clinic, or Other Facility [...] calories 1 Body mass index 40.0-44.9, adult ([facility]) 12/03 COVID 12/24/2020 Primary osteoarthritis of right knee 03/22/2019 Abnormal glucose 12/24/2016 Benign paroxysmal positional vertigo of right ea r 12/24/2016 Right wrist tendinitis 10/26/2016 Vitamin D deficiency 12/13/2012 Overview (05/13/2016): Hypovitaminosis D Benign hypertension 10/30/2010 Overview (05/15/2016): Benign Hypertension Adiposity 10/30/2010 Overview (05/15/2016): Obesity High cholesterol Immunizations Immunization Administration Dates Next Due Tdap 11/06/2011 Social History Tobacco Use Types Packs/Day Years Used Date Smoking Tobacco: Former Smokeless Tobacco: Never Tobacco Cessation:Counseling Given: Not Answered Alcohol Use Standard Drinks/Week Comments No 0 (1 standard drink = 0.6 oz pur e alcohol) Comments Unknown Sex and Gender Information Value Date Recorded Sex Assigned at Not on file 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 Gender Identity Female 10/22/2020 10:16 AM CDT Sexual Orientation Straight 10/22/2020 10 :16 AM CDT Last Filed Vital Signs Vital Sign Reading [...] 05/31/2024 8:59 AM CDT Plan of Treatment Not on file Procedures Procedure Name Priority Date/Time Associated Diagnosis Comments SD ARTHROCENTESIS ASPIR&/INJ MAJOR JT/BURSA W/O US Routine 05/30/2024 9:00 AM CDT Primary osteoarthritis of right knee HEPATITIS C AB REFLEX RNA QUANT PCR Routine 12/10/2016 8:45 AM CDT MAMMOGRAPHY Routine 05/21/2016 COLONOSCOPY Routine 02/08/2009 DEXA SCAN Routine 08/20/2008 from Last 3 Months or Most Recently Relevant to Health Maintenance Results * SD ARTHROCENTESIS ASPIR&/INJ MAJOR JT/BURSA W/O US (05/30/2024 [...] RNA Quantitative PCR (12/10/2016 8:45 AM CDT) Pathologist [facility] Hep C Ab Negative Negative CITLALLICOLLIN KELLY Blood specimen (specimen) 12/10/2016 8:45 AM CDT 12/10/2016 2:36 PM CDT Guido Isabel MD LAB MICROBIOLOGY - GENE RAL ORDERABLES Final Result ERIC [id number] Department [place] [address] * MAMMOGRAPHY (05/21/2016) Pathologist Pending sale to [facility] Mammogram Normal Historical Provider HEALTH MAINTENANCE Final Result * COLONOSCOPY (02/08/2009) Pathologist Pending sale to [facility] Colonoscopy Unknown Comment:Per Next [facility] delines Historical Provider HEALTH MAINTENANCE Final Result * DEXA SCAN (08/20/2008) Pathologist Pending sale to [facility] DEXA Scan Normal Historical Provider HEALTH MAINTENANCE Final Result from Last 3 Months or Most Recently Relevant to Health [place] [address] [facility] MEDICARE ADVANTAGE [facility] Address: [id number] [place] [address] [facility] MDCR HMO REF [facility] MEDIC[facility] Address: [address] [address] [place] [address] [place] [address] [facility] MEDICARE ADVANTAGE [facility] MEDIC[facility] Address: [address] [address] [place] [address] Care Teams Camouflage Specialist Relationship Specialty Start Date End Date Morro Piedra MD PCP - General Family Medicine 12/08/18 Rosy Del Rosario MD [address] [place] [address] Referring Physician Gynecology 12/08/18
== END 2024-06-19 07:12 | disposition home or self-care (01) ==
LOC: ANHIMG 07:16
PROVIDERS: PCP Student in an Organized Health Care Education/Training Program; Visit Provider Obstetrics & Gynecology Gynecology
DX: Z12.31 Encounter for screening mammogram for malignant neoplasm of breast (principal)
CPT/HCPCS: 77063; 77067